=== PATIENT | male | born 1990 | race Caucasian/White ===

== ENCOUNTER 2016-12-04 04:48 | Emergency (ER) | payer SELFPAY ==
[~2016-12-04] VITALS: Ht 182.9 cm; Wt 77.6 kg
[2016-12-04 05:28] VITALS: BP 126/81
== END 2016-12-04 08:06 | disposition admitted as inpatient to this hospital (09) ==
LOC: ERH 04:48
DX: R10.9 Unspecified abdominal pain (principal)